=== PATIENT | female | born 1995 | race Caucasian/White ===

== ENCOUNTER 2018-02-22 08:28 | Emergency (ER) | payer BC ==
--- NOTE | 2018-02-22 09:32 | ED ---
Throat Pain/Nasal Congestion - HPI Summary HPI Summary: Patient here with sore throat since Friday. She reports on Friday her throat felt worse and was accompanied by subjective fever. This morning she has a headache but has not had one the rest of the week. She has some mild dysphagia however still able to eat and drink without difficulty. She also reports intermittent ear congestion- today, she has pain in her left ear and fullness and "plugged" sensation in right ear. She had a cough last night and this morning with lying down most likely from postnasal drip. She has minor nasal congestion. Denies chest pain, shortness of breath, wheezing, chest tightness, abdominal pain, nausea, vomiting, diarrhea, rash, neck pain or stiffness. She is been exposed to multiple family members with URI symptoms. She herself has not had an influenza vaccine this year. She has tried DayQuil, NyQuil and Children's Motrin for her symptoms. Reports they have been helping keep her comfortable. She has a history of tonsillectomy 2 years ago. She had strep throat as a child. She is a history of asthma which is been controlled since middle school. - History of Current Complaint Chief Complaint: EDThroatPain Time Seen by Provider: 02/22/18 09:16 Hx Obtained From: Patient, Family/Auto Tech - mom - Allergies/Home Medications Allergies/Adverse Reactions: Allergies Allergy/AdvReac Type Severity Reaction Status Date / Time amoxicillin [From Augmentin] Allergy Hives Verified 02/22/18 08:35 cefaclor [From Ceclor] Allergy Hives Verified 02/22/18 08:35 cefixime [From Suprax] Allergy Hives Verified 02/22/18 08:35 clavulanic acid Allergy Hives Verified 02/22/18 08:35 [From Augmentin] erythromycin base Allergy Hives Verified 02/22/18 08:35 [From Pediazole] sulfisoxazole Allergy Hives Verified 02/22/18 08:35 [From Pediazole] PMH/Surg Hx/FS Hx/Imm Hx Previously Healthy: Yes Endocrine/Hematology History: Denies: Hx Diabetes, Autoimmune Disease Respiratory History: Reports: Hx Asthma - well controlled w/o meds EENT History: Reports: Other - tonsilectomy 2 year ago Infectious Disease History: No Infectious Disease History: Denies: Traveled Outside the [place] in Last 30 Days - Family History Known Family History: Positive: Cardiac Disease - [place], Other - uterine and pancreatic cancers - Social History Lives: With Family Alcohol Use: Rare Hx Substance Use: No Substance Use Type: Reports: None Hx Tobacco Use: No Smoking Status (MU): Never Smoked Tobacco Review of Systems Positive: Fever. Negative: Fatigue Eyes: Negative Positive: Sore Throat, Ear Ache, Nasal Discharge Cardiovascular: Negative Positive: Cough Gastrointestinal: Negative Positive: no symptoms reported Musculoskeletal: Negative Negative: Arthralgia, Myalgia Skin: Negative Positive: Headache Psychological: Normal All Other Systems Reviewed And Are Negative: Yes Physical Exam Triage Information Reviewed: Yes Vital Signs On Initial Exam: Initial Vitals Temp Pulse Resp BP Pulse Ox 97.9 F 102 14 110/69 97 02/22/18 08:36 02/22/18 08:36 02/22/18 08:36 02/22/18 08:36 02/22/18 08:36 Vital Signs Reviewed: Yes Appearance: Positive: Well-Appearing, No Pain Distress, Obese Skin: Positive: Warm, Skin Color Reflects Adequate Perfusion, Dry - no rash Head/Face: Positive: Normal Head/Face Inspection Eyes: Positive: Normal, EOMI, Conjunctiva Clear. Negative: Conjunctiva Inflammed, Discharge ENT: Positive: Hearing grossly normal, Nasal congestion - erythematous, edematous turbinates, Nasal drainage - clear/yellow tacky mucous d/c, TMs normal - Lt normal; Rt occluded by black cerumen - tragus and mastoids NTTP, Uvula midline. Negative: Pharynx normal - cobblestoning, Tonsillar swelling, Tonsillar exudate, Trismus, Muffled voice, Hoarse voice, Dental tenderness, Sinus tenderness Dental: Negative: Abscess @ Neck: Positive: Supple, No Lymphadenopathy, Tenderness @ - submandibular TTP Respiratory/Lung Sounds: Positive: Clear to Auscultation, Breath Sounds Present. Negative: Rales, Rhonchi, Stridor, Tracheal Deviation, Wheezes Cardiovascular: Positive: Normal, RRR, S1, S2. Negative: Murmur, Rub Abdomen Description: Positive: Nontender, No Organomegaly, Soft Bowel Sounds: Positive: Present Musculoskeletal: Positive: Normal, Strength/ROM Intact Neurological: Positive: Normal, Sensory/Motor Intact, Alert, Oriented to Person Place, Time, CN Intact II-III Psychiatric: Positive: Normal Diagnostics - Vital Signs Vital Signs Temp Pulse Resp BP Pulse Ox 02/22/18 08:36 97.9 F 102 14 110/69 97 - Laboratory Lab Statement: Any lab studies that have been ordered have been reviewed, and results considered in the medical decision making process. EENT Course/Dx - Course Course Of Treatment: Patient's rapid influenza and strep swabs are all negative. She declines Labette testing. Advised better control of her postnasal drip which appears to be causing her sore throat, ear pressure/pain, and cough when she is lying down. She will implement more supportive care and follow-up with PCP if symptoms persist or worsen. Danger signs and symptoms reviewed for when to return to the emergency department. Patient and mother agree with plan. - Diagnoses Provider Diagnoses: Viral URI, Right ear impacted cerumen Discharge - Sign-Out/Discharge Documenting (check all that apply): Discharge - Discharge Plan Condition: Stable Disposition: HOME Patient Education Materials: Upper Respiratory Infection (ED), Cerumen Impaction (ED) Referrals: Suzanne Child MD [Primary Care Provider] - Additional Instructions: Nasal wash (netti pot or saline spray) & salt water throat gargles 2 x day Drink you body weight in ounces of water every day Sleep 8+ hours per night Avoid Dairy and sugar Hot herbal/decaf tea with lemon & honey Chicken broth (preferably organic, free range chicken) Humidifier in house, but especially near bed at night Keep home temperature at 68F or less to reduce dryness Use cough drops/throat lozenges Try a facial steam with or without eucalyptus essential oil or Bossman's Vapor rub for congestion Avoid smoke, candles, perfumes, colognes, scented soaps/detergents , air fresheners and cleaning chemicals as these can cause airway irritation and trigger coughing *If congestion persists, you may try Sudafed to reduce ear pressure Start Vitamin D3 5000iu and Vitamin C 1000mg every day x winter months For your cerumen impaction, you may try debrox ear drops to soften wax. If symptoms persist, follow-up with PCP for lavage/disimpaction. - Billing Disposition and Condition Condition: STABLE Disposition: HOME
== END 2018-02-22 10:12 | disposition home or self-care (01) ==
LOC: ED 08:28
DX: J06.9 Acute upper respiratory infection, unspecified (principal); H61.21 Impacted cerumen, right ear; Z88.0 Allergy status to penicillin; Z88.8 Allergy status to other drugs, medicaments and biological substances; J45.909 Unspecified asthma, uncomplicated
CPT/HCPCS: 87502; 87651; 99281